=== PATIENT | female | born 1940 | race Caucasian/White ===

== ENCOUNTER → 2024-08-10 | Outpatient (CLI) | payer MEDICARE, SELFPAY ==
--- NOTE | 2024-08-10 15:57 | CT_ITS ---
PROCEDURE: ABDOMEN W/WO IV CONTRAST 08/10/2024 REASON FOR EXAM: FATIGUE W APPETITE LOSS/WORSENING DEMENTIA TECHNIQUE: ABDOMEN W/WO IV CONTRAST. Multiplanar Sagittal and Coronal images were obtained. One or more dose reduction techniques were used (e.g., Automated exposure control, adjustment of the mA and/or kV according to patient size, use of iterative reconstruction technique. CONTRAST: Isovue 300 VOLUME: 98 mL RADIATION DOSE SUMMARY: CTDlvol: 65 mGy DLP: 568 mGycm COMPARISON: No FINDINGS: Minimal basilar scar/atelectasis. Cholelithiasis. Liver, pancreas, spleen, adrenal glands, are unremarkable. No hydronephrosis. No retroperitoneal adenopathy. No free air. Small hiatal hernia. Nondistended bowel. Moderate stool. Lumbar spine scoliosis and degeneration. CT/Abdomen W/WO IV Contrast IMPRESSION: No acute abdominal findings. Reading Location: [place] [id number]
== END | disposition home or self-care (01) ==
PROVIDERS: PCP Nurse Practitioner Family; Referring Provider Nurse Practitioner Family; Visit Provider Nurse Practitioner Family
DX: R63.0 Anorexia (principal); F03.90 Unspecified dementia, unspecified severity, without behavioral disturbance, psychotic disturbance, mood disturbance, and anxiety; R53.83 Other fatigue
CPT/HCPCS: 74170; Q9967